=== PATIENT | female | born 1940 | race Caucasian/White ===

== ENCOUNTER → 2016-09-30 | Outpatient (CLI) | payer MEDICARE, OTHER ==
[~2016-09-30] MED LIST: AMITRYPTYLINE PO; B COMPLEX1 CA1 PO; DARVOCET-N 1001 TA1 PO; DEPAKOTE (UD)250 MG PO; DEPAKOTE250 MG PO; DITROPAN PO; EVISTA60 M1 PO; FOLIC ACID PO; LASIX PO; MEDROL PO; REGLAN10 MG; SPIRONOLACTONE50 MG PO; SYNTHROID0.05 MG PO; [UNRECOGNIZED DRUG - OTHER]
--- NOTE | ~2016-09-30 | MY11 ---
[facility] A Service of [facility] & [facility] RADIOLOGY TEXT RESULTS PATIENT: SRINIVAS DEL ANGEL LOCATION: [facility] : 36 UNIT #: [id number] AGE: [address]: Curry Blair MD SEX: F ORDER DR: [id number] [facility] [address] [facility] [place], [place] [address] [id number] MR#: [id number] Acc #: [id number] NAME: SRINIVAS DEL ANGEL : 1940 SEX: F STUDY DATE/TIME: 09/30/2016 15:17 UNIT: [facility] ROOM: STUDY DESCRIPTION: MY Mammogram Screening Dig Bo Attending Physician: Curry Blair M.D. Ordering Physician: Curry Blair M.D. Primary Care Physician: Curry Blair M.D. MEDICAL IMAGING REPORT This report is preliminary unless electronic signature is present EXAM Bilateral digital screening mammogram with CAD 09/30/2016 INDICATIONS 76-year-old female for routine screening. No reported problems and no personal history of breast cancer. No documented family history of breast cancer. The patient reports a history of "liver tumor." No prior breast surgeries. TECHNIQUE CC and MLO views of the breasts were obtained and reviewed with an approved CAD device. COMPARISON 07/01/2015, 03/26/2014, 03/08/2014 02/16/2013 FINDINGS Breast parenchyma is composed of heterogeneously dense breast tissue. This decreases sensitivity of screening mammography. Increased reliance on this exam findings views are recommended. The pattern is symmetric and unchanged. There is no new dominant nodule or mass in either breast. No new suspicious cluster of microcalcifications is present. Benign calcifications are present. There is a grouping of clustered microcalcifications in the periareolar left breast best demonstrated on the CC view. These are unchanged dating back to 2012 and therefore benign. IMPRESSION Benign screening mammogram. One year followup recommended. Patients over the age of 40 are entered into a reminder system with target due date for the next mammogram. A result letter will also be sent to the patient. BIRADS: 2 Benign findings. [facility] A Service of [facility] & [facility] RADIOLOGY TEXT RESULTS PATIENT: SRINIVAS DEL ANGEL LOCATION: [facility] : 36 UNIT #: [id number] AGE: [address]: Curry Blair MD SEX: F ORDER DR: Dictated by... Sami Clarke M.D. THIS IS AN ELECTRONICALLY VERIFIED REPORT Sami Clarke M.D. at 10/01/2016 10:16 AM Noé TD: 10/01/2016 06:27 JOB #: [id number] MEDICAL IMAGING REPORT COPY
== END | disposition home or self-care (01) ==
LOC: CWCC 14:52
DX: Z12.31 Encounter for screening mammogram for malignant neoplasm of breast (principal); Z87.898 Personal history of other specified conditions
CPT/HCPCS: G0202